=== PATIENT | female | born 1980 | race Caucasian/White ===

== ENCOUNTER → 2018-10-07 16:54 | Outpatient (CLI) | payer OTHER, SELFPAY ==
[2018-10-07 20:26] LABS: Urine N gonorrhoeae NOT DETECTED
[2018-10-07 20:36] LABS: Urine Chlamydia NOT DETECTED
[2018-10-17 13:44] LABS: AFP, Serum 28.5; Calc Gestational Age 17.1
[2018-10-17 13:52] LABS: hCG, MoM 0.92; hCG, Serum 21.4
[2018-10-17 13:57] LABS: Maternal Weight 204
[2018-10-17 13:58] LABS: Number of Fetuses 1
[2018-10-17 13:59] LABS: Donated Egg N; Donor Egg Age NOT GIVEN; Previous Pregnancy Down Syndro N
[2018-10-17 14:00] LABS: Cigarette Smoker N
[2018-10-17 14:05] LABS: Inhibin A, Dimeric 125
== END ==
DX: Z34.82 Encounter for supervision of other normal pregnancy, second trimester (principal)
CPT/HCPCS: 36415; 82105; 82677; 84702; 86336; 87491; 87591

== ENCOUNTER → 2018-11-04 16:04 | Outpatient (CLI) | payer OTHER, SELFPAY ==
[2018-11-04 17:13] LABS: Hemoglobin A1C% w Est Avg Glu 4.9 % (4.0-6.0)
[2018-11-04 17:16] LABS: Glucose 81 mg/dL (70-100)
[2018-11-04 18:06] LABS: HIV 1 & 2 Ab/Ag 4th Gen Combo NEGATIVE (NEGATIVE); Hep C Virus Ab w/Reflex Quant NEGATIVE s/c (NEGATIVE)
[2018-11-06 14:19] LABS: RPR Screen Nonreactive (Nonreactive)
[2018-11-06 16:57] LABS: Hepatitis BE Antigen Nonreactive (Nonreactive)
== END ==
DX: Z34.82 Encounter for supervision of other normal pregnancy, second trimester (principal)
CPT/HCPCS: 36415; 82947; 83036; 86592; 86762; 86787; 86803; 87350; 87389

== ENCOUNTER → 2018-12-16 12:37 | Outpatient (CLI) | payer OTHER, SELFPAY ==
[2018-12-16 14:52] LABS: Hematocrit 34.4 % (36-46); Hemoglobin 11.6 g/dL (12.0-16.0)
[2018-12-16 15:32] LABS: GTT (PREG) 1 Hour PP 50gm Dose 125 mg/dL (76-139)
== END ==
DX: Z34.82 Encounter for supervision of other normal pregnancy, second trimester (principal)
CPT/HCPCS: 36415; 82950; 85014; 85018

== ENCOUNTER → 2019-02-10 16:28 | Outpatient (CLI) | payer OTHER, SELFPAY ==
[2019-02-10 19:39] LABS: Strep Grp B PCR NEG for Grp B Strep
== END ==
DX: Z34.83 Encounter for supervision of other normal pregnancy, third trimester (principal)
CPT/HCPCS: 87081; 87653

== ENCOUNTER 2019-02-27 06:58 | Observation (INO) | payer OTHER, SELFPAY ==
[2019-02-27] MEDS: TERBUTALINE 1 MG/ML VIAL 0.25 MG SUBCUT (07:45)
--- NOTE | 2019-02-27 08:00 | PM.OBTRLD ---
Visit Information Visit Information Date of evaluation: 02/27/19 Primary OB Provider: Pj Tripp On-call OB Provider: Pj Tripp Reason for Evaluation: Yes other Comments/Additional reasons for admission: Patient with breech presentation at 37 weeks. Here for attempted version PFS Medical History (Updated 02/23/19 @ 09:53 by Pj Tripp MD) Drug use affecting (Acute) Surgical History (Updated 11/01/18 @ 21:42 by Sue Omer) Anesthesia (Resolved) History of oral surgery (Resolved) Family History (Updated 11/01/18 @ 21:44 by Sue Omer) Father Hypertension Asthma Grandmother Diabetes mellitus Stroke Grandmother Diabetes mellitus Hypertension Stroke Aneurysm Exam Vital Signs (past 8 hours): Baby is in breech presentation with the back to the left and the head in the right upper quadrant Forward roll was attempted after terbutaline administration. 2 attempts were made. It could be brought to the transverse but not beyond. Heart tones remained normal throughout and there was no evidence of bleeding or pain Evaluation Evaluation Baseline heart rate: 140 Variability: Average (6-10) monitor accelerations: Present monitor decelerations: Absent Contraction Frequency (minutes): 0 Category of Tracing: I Diagnosis, Plan/Disposition Plan/Disposition Plan: Failed version Recheck on Saturday OB Disposition: home
== END 2019-02-27 09:14 | disposition home or self-care (01) ==
DX: O32.1XX0 Maternal care for breech presentation, not applicable or unspecified (principal); O09.523 Supervision of elderly multigravida, third trimester; Z3A.37 37 weeks gestation of pregnancy
CPT/HCPCS: 59025; 59050; 59412; 76815; 96372; G0378; G0379

== ENCOUNTER 2019-03-13 08:08 | Inpatient (IN) | payer OTHER, SELFPAY ==
[2019-03-13] VITALS (7 sets, daily range): BP systolic 91–124; BP diastolic 41–82; PULSE 64–70; RESP 12–18; TEMP 36.7; O2SAT 100
--- NOTE | 2019-03-13 | PATH_ITS ---
[facility] Accession Number: [id number] . 01 Material submitted: . PART A: fallopian tube - RIGHT FALLOPIAN TUBE PART B: fallopian tube - LEFT FALLOPIAN TUBE . 02 Diagnosis: A. Right Fallopian Tube, Tubal Ligation: Complete cross-section of segment of fallopian tube x1. . B. Left Fallopian Tube, Tubal Ligation: Complete cross-section of segment of fallopian tube x1. MRV 03/16/2019 1116 Local . 02 Electronically signed: . Michaela Kirby MD, Pathologist NPI- [id number] . 01 Gross description: . Received two formalin-filled containers, both labeled with the patient's name: . A. In a container labeled #1. Right fallopian tube, the specimen consists of a non-fimbriated cylindrical-shaped portion of tissue which measures 0.9 x 0.7 x 0.7 cm. Inked blue. The specimen is sectioned into three pieces and entirely submitted in cassette A. B. In a container labeled #2. Left fallopian tube, the specimen consists of a non-fimbriated, cylindrical-shaped portion of tissue which measures 0.9 x 0.7 x 0.6 cm. Inked blue. The specimen is sectioned into three pieces and entirely submitted in cassette B. ([id number]) /ANIL 03/14/2019 0812 Local . 02 Pathologist provided ICD-10: Z3A.39, O32.1XX0, Z30.2 . 02 CPT . 641641, 442271 Performed at: 01 [facility] [address] [place] [address] [address], [place], [place] [id number] MD Jimy Soto MD Phone: [phone] Performed at: 02 [facility] [place] [id number] [place] [id number] MD Arlene Yarbrough MD Phone: [phone]
[2019-03-13] MEDS: LACTATED RINGERS 1,000 ML 1000 ML IV ×4 (09:10→12:50)
--- NOTE | 2019-03-13 09:33 | CM.SWNOTE ---
Received call from [facility]; clinical had been faxed to them but this patient no longer has [facility], she has Varun Miramontes JW
[2019-03-13 09:35] LABS: Add Manual Diff / Slide Review NO; Basophils Absolute Auto 0 /uL (0-100); Basophils Percent Auto 0.2 % (0-2); Eosinophils Absolute Auto 200 /uL (0-450); Eosinophils Percent Auto 1.3 % (2-4); Hematocrit 34.4 % (36-46); Lymphocytes Absolute Auto 2200 /uL (1100-4500); Lymphocytes Percent Auto 15.7 % (25-40); Mean Corpuscular Hemoglobin 31.1 PG (26-34); Mean Corpuscular Volume 88.9 fL (80-100); Monocytes Absolute Auto 900 /uL (0-900); Monocytes Percent Auto 6.3 % (3-14); Neutrophils Absolute Auto 10700 /uL (1500-7000); Neutrophils Percent Auto 76.5 % (50-75); Platelet Count 296 X10^3/uL (150-400); Red Blood Cell Count 3.87 X10^6/uL (4.0-5.2); Red Cell Distribution Width 13.3 % (11.6-14.8); White Blood Cell Count 13.9 X10^3/uL (4.5-11.0)
--- NOTE | 2019-03-13 09:47 | PM.PREOP ---
Pre-operative Note Interval Note History & Physical reviewed/Exam performed by Physician: Yes Changes to H&P: No ASA Class (for procedural sedation): II
--- NOTE | 2019-03-13 10:39 | SUR.OPER ---
Supine on Padded OR bed, head on pillow, safety belt at thigh, arms secured on padded arm boards at <90 degrees abduction. Bump under right buttock. Legs uncrossed with pillow under knees, gel pad to heels, tape over blanket to lower legs.
[2019-03-13] MEDS: CEFAZOLIN 2 GM/100 ML FROZ.PIGGY IV (10:51)
--- NOTE | 2019-03-13 12:22 | PM.GYNOP.1 ---
Operative Date/Time/Diagnoses Date of procedure: 03/13/19 Time of procedure: 12:22 Pre-op diagnosis: Term intrauterine Rich presented desires sterilization Post-op diagnosis: same Procedure & Clinicians Procedure: Procedures Operation Date: 03/13/19 10:15 Actual Procedures Side Surgeon p Section with Bilateral Tubal Ligation Pj Tripp MD Indications: Term intrauterine Breech presentation Desires sterilization Surgeon: Pj Tripp Boatswains Mate: Johnna Scott Anesthesia Type: Spinal Operative Notes Findings: Live-born female Normal uterus tubes and ovaries Closure Type: primary Specimen(s): portion of left tube and portion of right tube Applied: catheter Estimated blood loss (mL): 500 Blood products transfused: none Procedure in detail: The patient was placed upon the operating table and anesthetized. She was placed in the dorsal lithotomy position the catheters placed. The patient was then draped and prepared in the usual fashion. Markings were made for the section. A transverse incision was then made. Subcutaneous tissue was incised to the fascia. Fascia was incised with a sharp knife transversely in each direction. In this was white by blunt finger dissection. Perineum was picked up and incised in white by blunt finger dissection. Bladder blade was set in place. The peritoneum over the lower uterine segment was picked up and incised laterally in each direction. Bladder was taken down sharply. Bladder blade was replaced. A transverse scoring incision was made across the lower uterine segment. Perforating incision was made centrally. This is white but blunt finger dissection. There was a radhames breech presentation. Baby was allowed to deliver to the umbilicus. The knees were flexed and the feet brought out. Infant was rotated side to side in the arm swept down and the head delivered without difficulty. Baby's with suction. Cord was clamped and cord blood was obtained. Patient was sent to the warmer where the respiratory therapist and nurse pronounced the infant normal in good condition. It was a female . The uterus was exteriorized. Placenta was delivered manually. All membranes were massaged from the endometrial cavity. The uterine incision was closed in an imbricating fashion using a two layer technique with 1. Chromic suture. No bleeding points were seen. The visceral peritoneum was closed with running two 0 chromic suture. Tubes and ovaries appeared to be normal. Right tube was grasped at the isthmic ampullary junction and doubly tied with 0 plain catgut suture. The intervening portion of tube was excised. Similar procedures were performed on the left-hand side. Both ovaries to be normal. This having been ascertain the uterus was placed back in the abdominal cavity. Lateral edges the peritoneum were grasped. The peritoneum was closed with a running reason no bleeding points were seen. The retroperitoneum was copiously irrigated with normal saline. Mayra Basurto muscles were reapproximated at the midline using Vicryl suture. Fascia was closed with two continuous 1. Vicryl suture. Subcutaneous tissue was irrigated. Subcutaneous tissue was in two layers. 1st layer was then ruptured three 0 Vicryl suture. 2nd layer was closed with horizontal mattress running three 0 Vicryl suture. The skin was further reapproximated with Steri-Strips. The wound was clean and Aquacel dressing was placed. Evacuation of the uterus showed minimal amounts of blood. Urine was clear at the end of procedure. Patient was taken to the recovery room in satisfactory condition Complications: none Post-operative Condition: stable Disposition: PACU Plan for aftercare: Routine OB care
[2019-03-13] MEDS: OXYCODONE/ACETAMINOPHEN 5/325 TABLET 2 TAB PO ×3 (14:13→23:02)
[2019-03-13] MEDS: KETOROLAC 30 MG/ML VIAL IV (18:54)
[2019-03-14] MEDS: KETOROLAC 30 MG/ML VIAL IV ×2 (01:05→06:43)
[2019-03-14] MEDS: OXYCODONE/ACETAMINOPHEN 5/325 TABLET 2 TAB PO ×5 (03:11→21:01)
--- NOTE | 2019-03-14 08:26 | PM.OBPN.1 ---
Subjective - OB Subjective Patient comments: no complaints [place] baby status: doing well [place] feeding status: exclusively breast feeding Narrative: Patient is status post section for breech presentation. Also status post bilateral tubal ligation Date Patient Seen: 03/14/19 Time Patient Seen: 08:27 Interval history: The patient is approximately 24 hours post primary section and bilateral tubal ligation for breech presentation. The baby had some initial respiratory issues and is seen been seen by the commercial loan analyst. The patient is doing well. She remains afebrile with stable vital signs. She is taking p.o. well. She is ambulating. She continues on IVs. Her intake and output are more than adequate. The IV is been discontinued in the patient has a hep lock. The Vargas is out the patient is voiding. She has minimal vaginal bleeding Exam Vital Signs (past 8 hours): Oxygen Delivery Method Room Air Narrative Exam Narrative: Fundus is U minus two Lochia scant Incision has Aquacel dressing Objective Labs Result Diagrams: 03/14/19 06:46 Labs: Laboratory Results - last 24 hr 03/13/19 03/13/19 03/14/19 09:05 09:05 06:46 WBC 13.9 H RBC 3.87 L Hgb 12.0 10.0 L Hct 34.4 L 29.0 L MCV 88.9 MCH 31.1 MCHC 35.0 RDW 13.3 Plt Count 296 Neut % (Auto) 76.5 H Lymph % (Auto) 15.7 L [place] % (Auto) 6.3 Eos % (Auto) 1.3 L Baso % (Auto) 0.2 Neut # (Auto) 68784 H Lymph # (Auto) 2200 [place] # (Auto) 900 Eos # (Auto) 200 Baso # (Auto) 0 Blood Type A Positive Antibody Screen Negative Assessment & Plan Assessment and Plan (1) examination following delivery: Problem details: Doing well no problems Progressive ambulation Status: Acute Current Visit: Yes Time Spent With Patient Time: Total time spent is greater than 50% in coordination of care (as documented) at patient's floor/unit and/or counseling patient: Time with patient: less than 15 minutes
[2019-03-14] MEDS: DOCUSATE 250 MG CAPSULE PO (09:06)
[2019-03-14] MEDS: PRENATAL VIT,CALC/IRON/FOLIC 1 TABLET 1 TAB PO (09:06)
[2019-03-14] MEDS: FERROUS GLUCONATE 324 MG TABLET PO (09:06)
[2019-03-14] MEDS: IBUPROFEN 600 MG TABLET PO ×2 (16:26→23:15)
[2019-03-15] MEDS: OXYCODONE/ACETAMINOPHEN 5/325 TABLET 2 TAB PO ×3 (01:08→13:41)
[2019-03-15 07:36] VITALS: BP 121/82; PULSE 64; RESP 14; TEMP 36.7
--- NOTE | 2019-03-15 08:17 | PM.OBDS.1 ---
Discharge Providers Provider Date of admission: 03/13/19 08:08 Discharge Date: 03/15/19 Consults: 03/13/19 13:35 Consult to Bridge/Structure Inspection Team Leader Routine Comment: Discharge provider: Pj Tripp MD Summary Hospital Course Date Patient Seen: 03/15/19 Time Patient Seen: 08:17 Procedures: Term intrauterine Alexander breech presentation Primary section Bilateral tubal ligation Perez type Hospital Course: Patient is a 38-year-old three now para three who had persistent breech presentation. Version failed. Risks and benefits were discussed. The patient was scheduled for section. Patient underwent a primary section and was delivered of a live born female without difficulties. The baby appeared to have TTn but symptomatology has resolved. The surgery was uneventful. the patient did well. She remained afebrile with stable vital signs was progressively given p.o. fluids and food and ambulated. IV was discontinued. She voided in good volumes. She had minimal bleeding. Peripartum Data Infant Delivery Method: Section Procedures: Primary low segment section [place] type Bilateral tubal ligation [place] type complications: none Discharge Diagnosis (1) examination following delivery: Status: Acute Problem Details: Doing well no problems Progressive ambulation Status at Discharge Cognitive/behavioral status at discharge: oriented Functional status at discharge: independent ambulation Overall status at discharge: patient is progressing back to baseline Time Spent with Patient Time attestation: Total time spent providing and/or coordinating discharge services: Time spent: Less than 30 minutes Objective Labs Result Diagrams: 03/14/19 06:46 Exam Vital Signs (past 8 hours): Oxygen Delivery Method Room Air Narrative Exam Narrative: Fundus is U minus two and firm Incision covered by an Aquacel dressing Lochia is scant Extremities without edema or tenderness Discharge Plan Discharge Plan Patient Disposition: Home Discharge orders & Medications Prescriptions: New ibuprofen 600 mg Tablet 600 mg PO Q6HR PRN (Reason: Fever/Mild Pain (1-3)) Qty: 20 RF: 0 docusate sodium 250 mg Capsule 250 mg PO DAILY Qty: 14 RF: 0 Sxe-U-Kpzrsa Cream 1 applic topical PRN PRN (Reason: ) Qty: 1 RF: 0 oxycodone 5 mg capsule 5 mg PO Q8H PRN (Reason: pain) Qty: 10 RF: 0 ibuprofen 600 mg tablet 600 mg PO Q6H PRN (Reason: pain) Qty: 14 RF: 0 docusate sodium 250 mg capsule 250 mg PO BEDTIME Qty: 10 RF: 0 Continued Classic 28 mg iron- 800 mcg Tablet 1 tab PO DAILY Qty: 0 RF: 0 No Action (DME) Double Electric breast Pump and Supplies See Rx Instructions .ROUTE .MEDSUPPLY Qty: 1 RF: 0 Follow up/Referrals: Pj Tripp MD [Physician] - 1 Week (please follow up w/ Dr. Tripp on Saturday, Mar.20 @ 2:30pm for an incision check.) Discharge Health Status Multidrug resistant organism: No MDRO Diet/Activity/Treatments Diet: Diet as Tolerated Diet comment: Regular diet Activity: Up ad farzana Other treatments: Keep Aquacel dressing clean and dry Skin/Wound/Dressing Care Report to your healthcare provider any signs of infection, such as:: chills, fever, increased pain, unusual drainage and unusual redness Visit Report/Discharge Packet Instructions: DI for , DI for Prescription Opioid Use Stand Alone Forms: Discharge: Care
[2019-03-15] MEDS: PRENATAL VIT,CALC/IRON/FOLIC 1 TABLET 1 TAB PO (09:35)
[2019-03-15] MEDS: DOCUSATE 250 MG CAPSULE PO (09:35)
[2019-03-15] MEDS: FERROUS GLUCONATE 324 MG TABLET PO (09:35)
== END 2019-03-15 13:45 | disposition home or self-care (01) | DRG 785 ==
PROC: 10D00Z1 Extraction of Products of Conception, Low, Open Approach (ICD-10-PCS; CPT 59514; principal; 2019-03-13 10:15)
DX: O32.1XX0 Maternal care for breech presentation, not applicable or unspecified (principal); O75.89 Other specified complications of labor and delivery; Z3A.39 39 weeks gestation of pregnancy; Z37.0 Single live birth; Z30.2 Encounter for sterilization; Z79.899 Other long term (current) drug therapy
CPT/HCPCS: 36415; 58611; 59050; 59514; 59515; 76815; 85014; 85018; 85025; 86850; 86900; 86901; J0690; J1885; J2274; J2405; J2590; J2765; J3010